=== PATIENT | male | born 1975 | race Hispanic/Latino ===

== ENCOUNTER 2021-05-22 16:14 | Observation (INO) | payer SELFPAY ==
[~2021-05-22] VITALS: Ht 170.2 cm; Wt 82.6 kg
[2021-05-22] MEDS ORDERED: OMEPRAZOLE40 MG PO (16:25)
[2021-05-22] MEDS ORDERED: IBUPROFEN200 MG PO (16:25)
[2021-05-22] MEDS ORDERED: HYDROCHLOROTHIA25 MG (16:26)
[2021-05-22] MEDS ORDERED: CEPHALEXIN500 MG PO (16:26)
[2021-05-22] MEDS ORDERED: BACTRIM DS TAB1 EACH PO (16:26)
[2021-05-22] MEDS ORDERED: SODIUM CHLORIDE FLUSH 10 ML SYR INJ PRN (16:45)
[2021-05-22] MEDS ORDERED: HYDROCODONE/APAP 5MG-325MG TAB PO PRN (16:45)
[2021-05-22] MEDS ORDERED: ONDANSETRON HCL INJ 2MG/ML 2ML 2 MG/ML VIAL IV PRN (16:45)
[2021-05-22 16:46] LABS: BASOPHILS # (AUTO) 0.1 (0.0-0.1); BASOPHILS % 0.8 % (0.0-1.0); EOSINOPHILS # (AUTO) 0.1 (0.0-0.4); EOSINOPHILS % 1.2 % (0.0-6.0); HEMATOCRIT 48.6 % (38.2-49.6); HEMOGLOBIN 16.3 g/dL (14.0-18.0); LYMPHOCYTES % 32.7 % (18.0-39.1); MEAN CORPUSCULAR HGB CONC 33.5 g/dL (31-35); MEAN CORPUSCULAR VOLUME 86.5 fL (81-99); MONOCYTES # (AUTO) 0.6 (0.2-0.8); MONOCYTES % 6.2 % (4.4-11.3); NEUTROPHILS # (AUTO) 5.3 (2.1-6.9); NEUTROPHILS % 58.2 % (38.7-80.0); PLATELET COUNT 236 x10e3/uL (140-360); RED BLOOD COUNT 5.62 x10e6/uL (4.3-5.7); RED CELL DISTRIBUTION WIDTH 13.1 % (11.7-14.4)
[2021-05-22 16:56] LABS: INR 0.86; PROTHROMBIN TIME 12.3 seconds (11.9-14.5)
[2021-05-22 17:03] LABS: ALBUMIN 4.1 g/dL (3.5-5.0); ALBUMIN/GLOBULIN RATIO 1.1 (0.8-2.0); ANION GAP 18.9 mmol/L (8-16); CALCIUM 9.8 mg/dL (8.4-10.2); CREATININE, SERUM 1.17 mg/dL (0.72-1.25); POTASSIUM 3.9 mmol/L (3.5-5.1)
[2021-05-22] MEDS: ENOXAPARIN INJ 80 MG/0.8 ML SYR SC SCH (17:58)
[2021-05-22 18:25] VITALS: BP 137/96
[2021-05-22 18:26] VITALS: BP 137/96
[2021-05-22 21:37] VITALS: BP 121/88
[2021-05-22 21:55] VITALS: BP 121/88
[2021-05-23 02:48] VITALS: BP 114/82
[2021-05-23] MEDS: ENOXAPARIN INJ 80 MG/0.8 ML SYR SC SCH (05:35)
[2021-05-23 05:45] LABS: ANION GAP 17.8 mmol/L (8-16); CALCIUM 8.8 mg/dL (8.4-10.2); CREATININE, SERUM 1.28 mg/dL (0.72-1.25); POTASSIUM 3.8 mmol/L (3.5-5.1)
[2021-05-23 06:11] VITALS: BP 108/76
[2021-05-23 07:44] VITALS: BP 110/76
[2021-05-23] MEDS ORDERED: ELIQUIS5 MG PO (09:17)
[2021-05-23 09:44] VITALS: BP 110/76
[2021-05-23 09:46] VITALS: BP 110/76
== END 2021-05-23 10:14 | disposition home or self-care (01) ==
LOC: ER 16:29 → ERHOLD 16:36 → MED/SURG2 18:22
PROVIDERS: ADMIT Internal Medicine; ATTEND Internal Medicine
DX: I82.431 Acute embolism and thrombosis of right popliteal vein (principal); L03.115 Cellulitis of right lower limb; Z20.822 Contact with and (suspected) exposure to COVID-19; E87.2 Acidosis
CPT/HCPCS: 36415 ×2; 80048; 80053; 85025; 85610; 93005; 94799; 99284; G0378 ×2; J1650 ×2; U0002